=== PATIENT | female | born 1990 | race Caucasian/White ===

== ENCOUNTER 2023-02-17 05:42 | Inpatient (IN) ==
[2023-02-17 06:28] LABS: ABS Eosinophils 0.1 10^3/uL (0.0-0.5); ABS Lymphocytes 1.1 10^3/uL (1.0-4.8); ABS Monocytes 0.6 10^3/uL (0.0-0.9); ABS Neutrophils 6.9 10^3/uL (1.5-7.6); ABS Nucleated RBC 0.01 10^3/ul; Eosinophil % 0.7 %; Hematocrit 30.4 % (35-45); Hemoglobin 9.8 g/dL (11.5-14.3); Lymphocyte % 12.3 %; Mean Corpuscular Hemoglobin 24.8 pg (27-33); Mean Corpuscular Hgb Conc 32.3 g/dL (31-36); Mean Corpuscular Volume 76.7 fL (80-97); Mean Platelet Volume 6.9 fL (7.5-11.2); Nucleated Red Blood Cells % 0.1 %/100WBC (0.0-0.8); Platelet Count 411 10^3/uL (150-450); Red Blood Count 3.96 10^6/uL (3.63-4.92); Red Cell Distribution Width 16.2 % (12-17); White Blood Count 8.7 10^3/uL (3.8-11.8)
[2023-02-17 06:42] LABS: INR 1.18 (0.83-1.13)
[2023-02-17 06:45] LABS: ALT 6 U/L (7-52); AST 10 U/L (13-39); Albumin 4.3 g/dL (3.2-5.2); Albumin/Globulin Ratio 1.3 (1-3); Alkaline Phosphatase 61 U/L (35-149); Anion Gap 7 mmol/L (2-16); Blood Urea Nitrogen 8 mg/dL (6-24); CO2 Carbon Dioxide 25 mmol/L (22-32); Calcium 9.4 mg/dL (8.6-10.3); Chloride 104 mmol/L (101-111); Globulin 3.4 g/dL (2-4); Glucose 101 mg/dL (70-100); Potassium 4.1 mmol/L (3.5-5.0); Sodium 136 mmol/L (135-145); Total Bilirubin 0.4 mg/dL (0.2-1.0); Total Protein 7.7 g/dL (6.4-8.9)
[2023-02-17 06:52] LABS: High Sens Troponin Baseline < 3 pg/mL (<15)
[2023-02-17] MEDS ORDERED: Iohexol 350 (CONTRAST) 500 ML MDV IV ONE (06:57)
[2023-02-17 08:01] LABS: High Sensitivity Troponin 1 Hr < 3 pg/mL (<15)
[2023-02-17 08:02] LABS: HCG Pregnancy < 0.60 mIU/mL
[2023-02-17] MEDS ORDERED: Enoxaparin 100 MG/ML SYR SUBCUT ONE (08:28)
[2023-02-17] MEDS ORDERED: Heparin 5000 UNITS/ML 1 mL VIAL IV SCH (11:00)
[2023-02-17] MEDS: Heparin DRIP 25,000 UNITS BAG 25,000 UNITS/250 ML BAG IV SCH (17:40)
[2023-02-18 05:37] LABS: ABS Lymphocytes 1.4 10^3/uL (1.0-4.8); ABS Monocytes 0.8 10^3/uL (0.0-0.9); ABS Neutrophils 7.7 10^3/uL (1.5-7.6); Hematocrit 27.9 % (35-45); Lymphocyte % 14.1 %; Mean Corpuscular Hemoglobin 24.8 pg (27-33); Mean Corpuscular Hgb Conc 32.4 g/dL (31-36); Mean Corpuscular Volume 76.6 fL (80-97); Platelet Count 379 10^3/uL (150-450); Red Blood Count 3.64 10^6/uL (3.63-4.92); Red Cell Distribution Width 16.2 % (12-17); White Blood Count 9.9 10^3/uL (3.8-11.8)
[2023-02-18 05:52] LABS: Calcium 8.8 mg/dL (8.6-10.3); Creatinine, Serum 0.6 mg/dL (0.51-0.95); Potassium 3.9 mmol/L (3.5-5.0)
[2023-02-18 10:20] LABS: % Iron Saturation 4 % (15-55); .Transferrin 328 mg/dL (203-362); Iron < 20 ug/dL (50-212); Total Iron Binding Capacity 459 mcg/dL (250-450); Unsaturated Iron Binding 439 ug/dL
[2023-02-18] MEDS: Heparin DRIP 25,000 UNITS BAG 25,000 UNITS/250 ML BAG IV SCH (10:38)
[2023-02-18 10:40] LABS: Ferritin 15.9 ng/mL (11-307)
[2023-02-18] MEDS: Ferric Gluconate IV 250 MG in NS 0.9% 250 ml 200 ML IVPB SCH (13:17)
[2023-02-18] MEDS: Enoxaparin 80 MG/0.8 ML SYR SUBCUT SCH (22:28)
[2023-02-19 06:01] LABS: ABS Basophils 0.1 10^3/uL (0.0-0.1); ABS Lymphocytes 1.5 10^3/uL (1.0-4.8); ABS Monocytes 0.7 10^3/uL (0.0-0.9); ABS Neutrophils 6.3 10^3/uL (1.5-7.6); Eosinophil % 0.1 %; Hematocrit 27.4 % (35-45); Lymphocyte % 17.4 %; Mean Corpuscular Hgb Conc 32.8 g/dL (31-36); Mean Corpuscular Volume 76.1 fL (80-97); Mean Platelet Volume 6.9 fL (7.5-11.2); Platelet Count 371 10^3/uL (150-450); Red Cell Distribution Width 16.1 % (12-17); White Blood Count 8.5 10^3/uL (3.8-11.8)
[2023-02-19 06:20] LABS: Calcium 9.1 mg/dL (8.6-10.3); Creatinine, Serum 0.59 mg/dL (0.51-0.95); Magnesium 2.1 mg/dL (1.9-2.7); Potassium 3.9 mmol/L (3.5-5.0); eGFR CKD-EPI 123.5 (>60)
[2023-02-19] MEDS: Ferric Gluconate IV 250 MG in NS 0.9% 250 ml 200 ML IVPB SCH (09:14)
[2023-02-19] MEDS: Enoxaparin 80 MG/0.8 ML SYR SUBCUT SCH ×2 (09:14→20:16)
[2023-02-19] MEDS ORDERED: Polyethylene Glycol 3350 17 GM PACKET PO ONE (10:09)
[2023-02-19] MEDS: cefTRIAXone 1 gm/50 mL D5W 1 GM/50 ML BAG IV SCH (20:20)
[2023-02-19] MEDS ORDERED: Acetaminophen IV 1 GM/100ML 1,000 MG/100 ML BAG IV SCH (21:00)
[2023-02-20] MEDS: Enoxaparin 80 MG/0.8 ML SYR SUBCUT SCH ×2 (10:40→20:39)
[2023-02-20] MEDS: Polyethylene Glycol 3350 17 GM PACKET PO PRN (19:26)
[2023-02-20] MEDS: cefTRIAXone 1 gm/50 mL D5W 1 GM/50 ML BAG IV SCH (20:43)
[2023-02-21 06:12] LABS: ABS Lymphocytes 1.3 10^3/uL (1.0-4.8); ABS Monocytes 0.9 10^3/uL (0.0-0.9); ABS Neutrophils 7.4 10^3/uL (1.5-7.6); Eosinophil % 0.4 %; Hematocrit 27.7 % (35-45); Lymphocyte % 13.1 %; Mean Corpuscular Hemoglobin 24.8 pg (27-33); Mean Corpuscular Hgb Conc 32.3 g/dL (31-36); Mean Corpuscular Volume 76.9 fL (80-97); Mean Platelet Volume 7.1 fL (7.5-11.2); Platelet Count 441 10^3/uL (150-450); Red Cell Distribution Width 16.3 % (12-17); White Blood Count 9.6 10^3/uL (3.8-11.8)
[2023-02-21 06:27] LABS: Creatinine, Serum 0.54 mg/dL (0.51-0.95); Potassium 4.2 mmol/L (3.5-5.0); eGFR CKD-EPI 126.2 (>60)
[2023-02-21] MEDS ORDERED: Enoxaparin 100 MG/ML SYR SUBCUT SCH (10:20)
[2023-02-21] MEDS: Enoxaparin 80 MG/0.8 ML SYR SUBCUT SCH ×3 (10:27→22:34)
[2023-02-21] MEDS: cefTRIAXone 1 gm/50 mL D5W 1 GM/50 ML BAG IV SCH (20:18)
[2023-02-21] MEDS: Polyethylene Glycol 3350 17 GM PACKET PO PRN (22:33)
[2023-02-22] MEDS: Enoxaparin 80 MG/0.8 ML SYR SUBCUT SCH ×2 (09:16→21:00)
[2023-02-22] MEDS ORDERED: Piperacillin/Tazobac 3.375 BAG 3.375 GM/100 ML BAG IV ONE (11:01)
[2023-02-22] MEDS ORDERED: Flumazenil 0.5 mg/5 ml 0.1 MG/ML 5 ml VIAL IV PRN (11:37)
[2023-02-22] MEDS ORDERED: Naloxone 0.4 mg VIAL 0.4 mg/ml 1 ml VIAL IV PUSH PRN (11:37)
[2023-02-22] MEDS ORDERED: fentaNYL 100 mcg/2 ml 50 MCG/ML VIAL IV SLOW PU ONE (11:37)
[2023-02-22] MEDS ORDERED: Midazolam 10 mg/10 ml VIAL 1 mg/ml 10 ml VIAL (10 mg) IV SLOW PU ONE (11:37)
[2023-02-22] MEDS: NS 0.9% 1000 ml BAG 1,000 ML IV SCH ×2 (11:50→19:42)
[2023-02-22] MEDS: Pantoprazole VIAL 40 MG VIAL IV SCH (11:53)
[2023-02-22] MEDS ORDERED: Zosyn per Pharmacy NOTE FOLLOW UP SCH (12:00)
[2023-02-22] MEDS ORDERED: Lidocaine 1% VIAL 10 MG/ML 30 ML VIAL ONE (14:28)
[2023-02-22] MEDS ORDERED: fentaNYL 100 mcg/2 ml 50 MCG/ML VIAL ONE ×3 (14:29→16:01)
[2023-02-22] MEDS ORDERED: Iohexol 350 (CONTRAST) 100 ML PAK IV ONE ×2 (14:29→15:42)
[2023-02-22] MEDS ORDERED: Midazolam 5 mg/5 ml VIAL 1 mg/ml 5 ml VIAL (5 mg) ONE (14:29)
[2023-02-22] MEDS ORDERED: Heparin 1,000 UNIT/ML 10 ml (10,000 UNITS) CATHLAB/DIALYSIS ONE (14:30)
[2023-02-22] MEDS ORDERED: Heparin 2 UNITS/ML 1000 mls 2,000 ML IV ONE ×2 (14:31→15:31)
[2023-02-22] MEDS ORDERED: Morphine 2 MG/ML SYRINGE IV PRN (17:50)
[2023-02-22] MEDS ORDERED: Acetaminophen IV 1 GM/100ML 1,000 MG/100 ML BAG IV PRN (17:51)
[2023-02-22] MEDS: ZOSYN 3.375 GM Q8H per EXTENDED INFUSION IV SCH (18:30)
[2023-02-23] MEDS: ZOSYN 3.375 GM Q8H per EXTENDED INFUSION IV SCH ×3 (00:10→17:02)
[2023-02-23 05:51] LABS: ABS Basophils 0.1 10^3/uL (0.0-0.1); ABS Eosinophils 0.1 10^3/uL (0.0-0.5); ABS Lymphocytes 1.3 10^3/uL (1.0-4.8); ABS Monocytes 0.7 10^3/uL (0.0-0.9); ABS Neutrophils 6.2 10^3/uL (1.5-7.6); Eosinophil % 0.6 %; Hematocrit 24.1 % (35-45); Lymphocyte % 15.1 %; Mean Corpuscular Hemoglobin 25.5 pg (27-33); Mean Corpuscular Hgb Conc 33.1 g/dL (31-36); Mean Corpuscular Volume 77.1 fL (80-97); Mean Platelet Volume 7.1 fL (7.5-11.2); Platelet Count 407 10^3/uL (150-450); Red Blood Count 3.12 10^6/uL (3.63-4.92); Red Cell Distribution Width 16.1 % (12-17); White Blood Count 8.3 10^3/uL (3.8-11.8)
[2023-02-23 06:06] LABS: Calcium 8.2 mg/dL (8.6-10.3); Creatinine, Serum 0.52 mg/dL (0.51-0.95); Potassium 4.6 mmol/L (3.5-5.0); eGFR CKD-EPI 127.3 (>60)
[2023-02-23 07:21] LABS: POC SO2 69 %
[2023-02-23] MEDS: NS 0.9% 1000 ml BAG 1,000 ML IV SCH (08:59)
[2023-02-23] MEDS: Enoxaparin 80 MG/0.8 ML SYR SUBCUT SCH ×2 (08:59→21:09)
[2023-02-23] MEDS: Ondansetron 4 mg VIAL 2 MG/ML 2 ml VIAL IV PRN ×2 (09:04→13:01)
[2023-02-23] MEDS: Pantoprazole VIAL 40 MG VIAL IV SCH (11:07)
[2023-02-24] MEDS: NS 0.9% 1000 ml BAG 1,000 ML IV SCH (00:19)
[2023-02-24] MEDS: ZOSYN 3.375 GM Q8H per EXTENDED INFUSION IV SCH ×3 (00:19→17:20)
[2023-02-24 06:29] LABS: Hematocrit 23.5 % (35-45); Hemoglobin 7.6 g/dL (11.5-14.3); Mean Corpuscular Hemoglobin 25.2 pg (27-33); Mean Corpuscular Hgb Conc 32.2 g/dL (31-36); Mean Corpuscular Volume 78.1 fL (80-97); Mean Platelet Volume 7.3 fL (7.5-11.2); Platelet Count 425 10^3/uL (150-450); Red Blood Count 3.01 10^6/uL (3.63-4.92); Red Cell Distribution Width 16.7 % (12-17); White Blood Count 8.6 10^3/uL (3.8-11.8)
[2023-02-24 06:48] LABS: Calcium 8.3 mg/dL (8.6-10.3); Creatinine, Serum 0.55 mg/dL (0.51-0.95); Magnesium 2.3 mg/dL (1.9-2.7); Potassium 4.1 mmol/L (3.5-5.0); eGFR CKD-EPI 125.6 (>60)
[2023-02-24 06:50] LABS: ABS Eosinophils 0.1 10^3/uL (0.0-0.5); ABS Lymphocytes 1.6 10^3/uL (1.0-4.8); ABS Monocytes 0.7 10^3/uL (0.0-0.9); ABS Neutrophils 6.2 10^3/uL (1.5-7.6); Eosinophil % 1.1 %; Lymphocyte % 18.5 %
[2023-02-24] MEDS: Enoxaparin 80 MG/0.8 ML SYR SUBCUT SCH ×2 (08:16→20:52)
[2023-02-24] MEDS: Pantoprazole VIAL 40 MG VIAL IV SCH (11:10)
[2023-02-25] MEDS: ZOSYN 3.375 GM Q8H per EXTENDED INFUSION IV SCH ×2 (01:21→10:11)
[2023-02-25 05:55] LABS: Hematocrit 25.8 % (35-45); Hemoglobin 8.4 g/dL (11.5-14.3); Mean Corpuscular Hemoglobin 25.1 pg (27-33); Mean Corpuscular Hgb Conc 32.7 g/dL (31-36); Mean Corpuscular Volume 76.7 fL (80-97); Mean Platelet Volume 6.9 fL (7.5-11.2); Platelet Count 527 10^3/uL (150-450); Red Blood Count 3.36 10^6/uL (3.63-4.92); Red Cell Distribution Width 17.2 % (12-17); White Blood Count 8.9 10^3/uL (3.8-11.8)
[2023-02-25 07:09] LABS: ABS Basophils 0.1 10^3/uL (0.0-0.1); ABS Eosinophils 0.1 10^3/uL (0.0-0.5); ABS Lymphocytes 1.8 10^3/uL (1.0-4.8); ABS Monocytes 0.6 10^3/uL (0.0-0.9); ABS Neutrophils 6.4 10^3/uL (1.5-7.6); Eosinophil % 1.2 %; Lymphocyte % 19.9 %
[2023-02-25] MEDS: Enoxaparin 80 MG/0.8 ML SYR SUBCUT SCH (10:13)
[2023-02-25] MEDS: Pantoprazole VIAL 40 MG VIAL IV SCH (11:02)
[2023-02-25 11:08] VITALS: BP 112/70
== END 2023-02-25 13:19 | disposition home or self-care (01) | DRG 950 ==
LOC: ED 05:42 → EDHOLD 05:42 → SUATTDRO 08:27 → MEDTELE 11:05 → SUATTDRO 02-19 18:19 → ICU 02-22 17:24 → MEDTELE 02-23 20:33
PROVIDERS: ADMIT Student in an Organized Health Care Education/Training Program; ATTEND Internal Medicine